=== PATIENT | male | born 1995 | race Caucasian/White ===

== ENCOUNTER 2016-04-03 20:02 | Emergency (ER) | payer OTHER ==
[2016-04-03] MEDS ORDERED: ONDANSETRON 4 MG TAB.RAPDIS PO ONE (20:13)
--- NOTE | 2016-04-03 20:13 | ER Document Report ---
ED Medical Screen (RME) - General Chief Complaint: Epigastric Pain Stated Complaint: ABDOMINAL PAIN Notes: patient is a 20 year old male p/w epigastric pain that started yesterday. Denies N/V denies fevers, chills. Denies PMH s/f diverticulosis, IBS, chrons, UC Last BM-today, nl I have greeted and performed a rapid initial assessment of this patient. A comprehensive ED assessment and evaluation of the patient, analysis of test results and completion of the medical decision making process will be conducted by additional ED providers. Physical Exam - Vital signs Vitals: Temp Pulse Resp BP 97.4 F 56 L 18 129/75 H 04/03/16 20:06 04/03/16 20:06 04/03/16 20:06 04/03/16 20:06 Course - Vital Signs Vital signs: Temp Pulse Resp BP Pulse Ox 97.4 F 56 L 18 129/75 H 04/03/16 20:06 04/03/16 20:06 04/03/16 20:06 04/03/16 20:06
[2016-04-03 20:30] LABS: ABSOLUTE EOSINOPHILS # (AUTO) 0.2 10^3/uL (0.0-0.6); ABSOLUTE LYMPHOCYTES (AUTO) 3.3 10^3/uL (0.5-4.7); ABSOLUTE MONOCYTES (AUTO) 0.8 10^3/uL (0.1-1.4); ABSOLUTE NEUT (AUTO) 3.4 10^3/uL (1.7-8.2); BASOPHILS % (AUTO) 0.6 % (0-2); EOSINOPHILS % (AUTO) 2.9 % (0-6); HEMATOCRIT 47.3 % (37.9-51.0); HEMOGLOBIN 16.4 g/dL (13.5-17.0); HGB HCT DIFFERENCE 1.9; LYMPHOCYTES % (AUTO) 43.1 % (13-45); MEAN CORPUSCULAR HEMOGLOBIN 29.3 pg (27.0-33.4); MEAN CORPUSCULAR HGB CONC 34.6 g/dL (32.0-36.0); MEAN CORPUSCULAR VOLUME 85 fl (80-97); MONOCYTES % (AUTO) 10.4 % (3-13); RED BLOOD COUNT 5.58 10^6/uL (4.35-5.55); RED CELL DISTRIBUTION WIDTH 13.4 % (11.5-14.0); WHITE BLOOD COUNT 7.8 10^3/uL (4.0-10.5)
[2016-04-03 20:51] LABS: ALANINE AMINOTRANSFERASE 27 U/L (10-40); ALBUMIN 5.3 g/dL (3.7-5.6); ALKALINE PHOSPHATASE 95 U/L (65-260); ANION GAP 15 (5-19); ASPARTATE AMINO TRANSFERASE 23 U/L (10-45); BILIRUBIN,TOTAL 1.1 mg/dL (0.2-1.3); BLOOD UREA NITROGEN 13 mg/dL (7-20); CALCIUM 10.7 mg/dL (8.4-10.2); CARBON DIOXIDE 31 mmol/L (22-30); CHLORIDE 100 mmol/L (98-107); CREATININE RESULT 0.93 mg/dL (0.52-1.25); GLUCOSE 90 mg/dL (75-110); LIPASE 39.7 U/L (23-300); POTASSIUM 3.7 mmol/L (3.6-5.0); SODIUM 146.1 mmol/L (137-145); TOTAL PROTEIN 8.4 g/dL (6.3-8.2)
--- NOTE | 2016-04-03 21:29 | ER Document Report ---
ED GI/ - General Chief Complaint: Abdominal Pain Stated Complaint: ABDOMINAL PAIN Notes: Patient is a 20-year-old male that comes emergency department with chief complaint of pain in his right upper abdomen, symptoms have been going on since yesterday, intermittent sharp. He denies nausea or vomiting. He states he tried to eat but symptoms are worse after eating. He denies fever or chills. He denies any abdominal surgeries. He had a normal bowel movement within the past 24 hours. He denies any daily medications. He is active duty. TRAVEL OUTSIDE OF THE [place] IN LAST 30 DAYS: No - Related Data Allergies/Adverse Reactions: No Known Allergies Allergy (Unverified 04/03/16 20:12) Past Medical History - General Information source: Patient - Social History Smoking Status: Current Every Day Smoker Chew tobacco use (# tins/day): No Frequency of alcohol use: Occasional Drug Abuse: None Lives with: Family Family History: Reviewed & Not Pertinent Patient has suicidal ideation: No Patient has homicidal ideation: No - Medical History Medical History: Negative Renal/ Medical History: Denies: Hx Peritoneal Dialysis Surgical Hx: Negative - Immunizations Hx Diphtheria, Pertussis, Tetanus Vaccination: Yes Review of Systems - Review of Systems Constitutional: No symptoms reported EENT: No symptoms reported Cardiovascular: No symptoms reported Respiratory: No symptoms reported Gastrointestinal: See HPI Genitourinary: No symptoms reported Male Genitourinary: No symptoms reported Musculoskeletal: No symptoms reported Skin: No symptoms reported Hematologic/Lymphatic: No symptoms reported Neurological/Psychological: No symptoms reported Physical Exam - Vital signs Vitals: Temp Pulse Resp BP 97.4 F 56 L 18 129/75 H 04/03/16 20:06 04/03/16 20:06 04/03/16 20:06 04/03/16 20:06 Interpretation: Normal - General General appearance: Appears well, Alert In distress: None - HEENT Head: Normocephalic, Atraumatic Eyes: Normal Pupils: PERRL - Respiratory Respiratory status: No respiratory distress Chest status: Nontender Breath sounds: Normal Chest palpation: Normal - Cardiovascular Rhythm: Regular Heart sounds: Normal auscultation Murmur: No - Abdominal Inspection: Normal Distension: No distension Bowel sounds: Normal Tenderness: Tender - Right upper quadrant tenderness on examination, otherwise soft and benign abdomen Organomegaly: No organomegaly - Back Back: Normal, Nontender. No: Tender - Extremities General upper extremity: Normal inspection, Nontender, Normal color, Normal ROM , Normal temperature General lower extremity: Normal inspection, Nontender, Normal color, Normal ROM , Normal temperature, Normal weight bearing. No: Elder's sign - Neurological Neuro grossly intact: Yes Cognition: Normal Orientation: AAOx4 Manish Coma Scale Eye Opening: Spontaneous Manish Coma Scale Verbal: Oriented [place] Coma Scale Motor: Obeys Commands [place] Coma Scale Total: 15 Speech: Normal Motor strength normal: LUE, RUE, LLE, RLE Sensory: Normal - Psychological Associated symptoms: Normal affect, Normal mood - Skin Skin Temperature: Warm Skin Moisture: Dry Skin Color: Normal Course - Re-evaluation Re-evalutation: Mild leukocytosis with no shift, chemistry including lipase is unremarkable. Patient does have right upper quadrant tenderness on examination. Ultrasound was performed, shows gallbladder sludge, no other sonographic abnormalities noted. Discussed with Dr. Gong per [facility] protocol. Discussed with patient, on reevaluation patient is symptom-free, patient states he took ibuprofen before coming to the ER. Patient is requesting to leave now, currently asymptomatic, very well-appearing. Patient provided with a copy of his report, referred surgery, discussed return precautions, patient states satisfaction and agreement. - Vital Signs Vital signs: Temp Pulse Resp BP Pulse Ox 97.6 F 58 L 16 126/74 H 100 04/03/16 22:28 04/03/16 22:28 04/03/16 22:28 04/03/16 22:28 04/03/16 22:28 - Laboratory Result Diagrams: 04/03/16 20:15 04/03/16 20:15 Laboratory results interpreted by me: 04/03/16 04/03/16 20:15 20:15 RBC 5.58 H Sodium 146.1 H Carbon Dioxide 31 H Calcium 10.7 H Total Protein 8.4 H Discharge - Discharge Clinical Impression: Right upper quadrant pain Condition: Stable Disposition: HOME, SELF-CARE Additional Instructions: Findings are consistent with gallbladder sludge, please follow-up with surgical referral or a general surgery office for additional management. Avoid fatty foods as these will cause stronger contractions of the gallbladder and more likely cause pain. Ibuprofen can help stop contractions. Return to emergency department for any concerning or worsening symptoms including vomiting, severe pain, fever, etc. Referrals: [facility] [Provider Group] - Follow up in 1 week
[2016-04-03 22:47] VITALS: BP 126/74
== END 2016-04-03 22:48 | disposition home or self-care (01) ==
LOC: ER 20:02
DX: R10.11 Right upper quadrant pain (principal); F17.200 Nicotine dependence, unspecified, uncomplicated
CPT/HCPCS: 99284; 36415; 83690; 85025; 80053; 76705; S0119